=== PATIENT | male | born 1975 | race Caucasian/White ===

== ENCOUNTER 2016-07-26 19:07 | Emergency (ER) | payer SELFPAY ==
[~2016-07-26] VITALS: Ht 177.8 cm; Wt 77.8 kg
[2016-07-26 19:16] VITALS: BP 147/102
[2016-07-26] MEDS ORDERED: URSO300C27 PO (20:48)
[2016-07-26] MEDS ORDERED: CELE200C PO (20:48)
[2016-07-26] MEDS ORDERED: ATOR40TA78 PO (20:48)
[2016-07-26] MEDS ORDERED: ONDA8TAB9 PO (20:48)
[2016-07-26] MEDS ORDERED: DAPA10TA PO (20:48)
[2016-07-26] MEDS ORDERED: OXYC-229 PO (20:48)
[2016-07-26] MEDS ORDERED: OXYC40TA27 PO (20:48)
[2016-07-26] MEDS ORDERED: INSU100I32 SC (20:48)
[2016-07-26] MEDS ORDERED: OMEG-14 PO (20:48)
[2016-07-26] MEDS ORDERED: OXYcodone/APAP 5/325MG TABLET ONE (20:56)
[2016-07-26] MEDS ORDERED: OXYcodone/APAP 5/325MG TABLET PO ONE (21:00)
== END 2016-07-26 22:16 | disposition home or self-care (01) ==
LOC: ED 22:10
DX: S93.401A Sprain of unspecified ligament of right ankle, initial encounter (principal); V87.8XXA Person injured in other specified noncollision transport accidents involving motor vehicle (traffic), initial encounter; Y93.89 Activity, other specified; Y92.89 Other specified places as the place of occurrence of the external cause; Y99.8 Other external cause status
CPT/HCPCS: 29515

== ENCOUNTER 2017-01-08 18:50 | Emergency (ER) | payer MEDICAID ==
[~2017-01-08] VITALS: Ht 177.8 cm; Wt 78.7 kg
[~2017-01-08 18:50] MED LIST: ATOR40TA78 PO; CELE200C PO; DAPA10TA PO; INSU100I32 SC; OMEG-14 PO; ONDA8TAB9 PO; OXYC-307 PO; OXYC40TA27 PO; URSO300C27 PO
[2017-01-08 18:51] VITALS: BP 139/82
== END 2017-01-08 21:57 | disposition home or self-care (01) ==
LOC: ED 21:00
DX: S42.021A Displaced fracture of shaft of right clavicle, initial encounter for closed fracture (principal); G89.11 Acute pain due to trauma; R07.89 Other chest pain; V27.4XXA Motorcycle driver injured in collision with fixed or stationary object in traffic accident, initial encounter; Y93.89 Activity, other specified; Y99.8 Other external cause status; Y92.89 Other specified places as the place of occurrence of the external cause
CPT/HCPCS: 99284